=== PATIENT | female | born 1980 | race Caucasian/White ===

== ENCOUNTER 2017-05-15 07:11 | Observation (INO) | payer OTHER ==
[~2017-05-15] VITALS: Ht 165.1 cm; Wt 118.2 kg
[2017-05-15] MEDS ORDERED: BIRTH CONTROL PO (07:18)
[2017-05-15] MEDS ORDERED: CELEXA 20MG20 MG/TAB PO (07:18)
[2017-05-15 08:01] LABS: BASO # 0.1 (0.0-0.2); BASO % 0.6 % (0.0-2.0); EOS # 0.5 (0.0-0.7); EOS % 3.5 % (0-4.0); HEMATOCRIT 40.2 % (37.0-47.0); HEMOGLOBIN 13.2 g/dl (12.5-16.0); LYMPH # 2.5 (1.2-3.4); LYMPH % 16.7 % (20.0-51.0); MEAN CELL VOLUME 87 fl (80.0-100.0); MEAN CORPUSCULAR HEMOGLOBIN 29 pg (27.0-31.0); MEAN CORPUSCULAR HGB CONC 33 g/dl (33.0-37.0); MONO # 0.7 (0.1-0.6); MONO % 4.4 % (1.7-9.3); PLATELET COUNT 241 K/mm3 (130-400); RED BLOOD COUNT 4.62 M/mm3 (4.10-5.30); REDCELL DISTRIBUTION WIDTH-CV 13.1 % (11.5-14.5); WHITE BLOOD COUNT 14.9 K/mm3 (4.8-10.8)
[2017-05-15 08:20] LABS: ADJUSTED CALCIUM 9.2 mg/dL (8.4-10.2); ALBUMIN 3.9 gm/dL (3.5-5.0); BILIRUBIN,TOTAL 0.7 mg/dL (0.0-1.0); CALCIUM 9.1 mg/dL (8.4-10.2); CREATININE, serum 0.77 mg/dL (0.52-1.25); POTASSIUM 3.9 mmol/L (3.4-5.0); TOTAL PROTEIN 7.2 gm/dL (6.4-8.2)
[2017-05-15 11:23] VITALS: PULSE 82; TEMP 98.7
[2017-05-15 11:55] LABS: PH 6 (5-8); URINE APPEARANCE Clear; URINE BACTERIA None Seen /hpf; URINE BILIRUBIN Negative (NEGATIVE); URINE BLOOD Negative (NEGATIVE); URINE COLOR Yellow; URINE GLUCOSE Negative (NEGATIVE); URINE KETONE Negative (NEGATIVE); URINE UROBILINOGEN Negative (NEGATIVE)
[2017-05-15 12:00] VITALS: BP 95/55; PULSE 73; TEMP 98.1
[2017-05-15 12:53] LABS: URINE WBC 20-50 /hpf
[2017-05-15 14:07] LABS: HEMOGLOBIN 12.3 g/dl (12.5-16.0)
[2017-05-15] MEDS ORDERED: VIENVA-28 TABL1 EACH PO (16:12)
[2017-05-15] MEDS ORDERED: FLONASEALLERGY NS (16:13)
[2017-05-15 16:20] VITALS: BP 94/52; PULSE 82; TEMP 98.3
[2017-05-15 20:00] VITALS: BP 105/57; PULSE 72; TEMP 98.1
[2017-05-15 20:30] LABS: HEMATOCRIT 34.8 % (37.0-47.0); HEMOGLOBIN 11.4 g/dl (12.5-16.0)
[2017-05-16 02:01] LABS: HEMATOCRIT 33.6 % (37.0-47.0); HEMOGLOBIN 11.1 g/dl (12.5-16.0)
[2017-05-16 04:00] VITALS: BP 104/45; PULSE 81; TEMP 98
[2017-05-16 07:39] LABS: HEMATOCRIT 34.7 % (37.0-47.0); HEMOGLOBIN 11.1 g/dl (12.5-16.0)
[2017-05-16 08:54] VITALS: BP 96/47; PULSE 74; TEMP 97.3
[2017-05-16 13:21] LABS: HEMATOCRIT 33.1 % (37.0-47.0); HEMOGLOBIN 10.8 g/dl (12.5-16.0)
[2017-05-16 13:34] VITALS: BP 92/52; PULSE 72; TEMP 97.9
[2017-05-16 17:35] VITALS: BP 114/51; PULSE 78; TEMP 98.8
[2017-05-16 21:32] VITALS: BP 102/56; PULSE 75; TEMP 97.4
[2017-05-17 01:09] VITALS: BP 110/52; PULSE 75; TEMP 97.7
[2017-05-17 06:08] VITALS: BP 98/55; PULSE 77; TEMP 97.4
[2017-05-17 07:44] LABS: HEMATOCRIT 32.5 % (37.0-47.0); HEMOGLOBIN 10.9 g/dl (12.5-16.0)
[2017-05-17 08:49] VITALS: BP 106/55; PULSE 71; TEMP 98.5
[2017-05-17 13:36] VITALS: BP 122/64; PULSE 79; TEMP 97.8
== END 2017-05-17 17:00 | disposition home or self-care (01) ==
LOC: COL.ER 07:11 → SURG 09:46
PROVIDERS: Emergency Medicine; Surgery
DX: S82.54XA Nondisplaced fracture of medial malleolus of right tibia, initial encounter for closed fracture (principal); S80.01XA Contusion of right knee, initial encounter; S60.211A Contusion of right wrist, initial encounter; S20.219A Contusion of unspecified front wall of thorax, initial encounter; S30.1XXA Contusion of abdominal wall, initial encounter; M19.071 Primary osteoarthritis, right ankle and foot; V89.2XXA Person injured in unspecified motor-vehicle accident, traffic, initial encounter; Y92.488 Other paved roadways as the place of occurrence of the external cause
CPT/HCPCS: A9284; G0378; J1885; J2270; J2405; J7030; Q9967

== ENCOUNTER 2019-05-02 16:06 | Outpatient (RCR) | payer BC ==
[~2019-05-02 16:06] MED LIST: BIRTH CONTROL PO; CELEXA 20MG20 MG/TAB PO; FLONASEALLERGY NS; VIENVA-28 TABL1 EACH PO
== END 2019-07-31 | disposition home or self-care (01) ==
LOC: MKS.ESL.PT
DX: H81.11 Benign paroxysmal vertigo, right ear (principal)

== ENCOUNTER → 2020-02-17 | Outpatient (CLI) | payer BC | LOC: COL.LAB 15:10 | DX: R05 Cough (principal); Z20.828 Contact with and (suspected) exposure to other viral communicable diseases ==

== ENCOUNTER → 2024-02-29 | Outpatient (CLI) | payer BC | LOC: MC.RAD 11:14 | DX: Z12.31 Encounter for screening mammogram for malignant neoplasm of breast (principal); N60.01 Solitary cyst of right breast ==